=== PATIENT | female | born 1995 | race Caucasian/White ===

== ENCOUNTER 2016-12-16 19:05 | Emergency (ER) | payer OTHER ==
[2016-12-16 19:42] LABS: RAPID STREP SCREEN REAGENT QC YELLOW (YELLOW)
[2016-12-16] MEDS ORDERED: KETOROLAC 60 MG/2 ML VIAL IM STA (19:54)
[2016-12-16] MEDS ORDERED: DEXAMETHASONE 10 MG/ML VIAL PO STA (19:54)
[2016-12-16] MEDS ORDERED: KETOROLAC 60 MG/2 ML VIAL ONE (20:01)
[2016-12-16] MEDS ORDERED: CHERRY SYRUP 10 ML UDC PO ONE (20:02)
[2016-12-16] MEDS ORDERED: DEXAMETHASONE 10 MG/ML VIAL ONE (20:02)
--- NOTE | 2016-12-16 20:18 | ED Physician Documentation ---
PD HPI URI - Stated complaint Stated Complaint: SORE THROAT - Chief complaint Chief Complaint: Heent - History obtained from History obtained from: Patient - History of Present Illness Timing - onset: How many days ago (3) Timing duration: Days (3) Timing details: Gradual onset Pain level max: 7 Pain level now: 5 Associated symptoms: Nasal congestion, Rhinorrhea, Sore throat, Dry cough (mild) . No: Fever, Chills, Hemoptysis, Chest pain, Dyspnea, NVD Improves by: Rest Worsened by: Other (swallowing) Similar symptoms before: Diagnosis (viral pharyngitis) Recently seen: Clinic (seen at [facility] earlier today for same) Review of Systems Constitutional: denies: Fever GI: denies: Abdominal Pain, Nausea, Vomiting : denies: Dysuria, Frequency, Hesitancy, Now EGA Skin: denies: Rash Musculoskeletal: denies: Neck pain, Back pain Neurologic: denies: Headache PD PAST MEDICAL HISTORY - Past Medical History Past Medical History: No - Present Medications Home Medications: Ambulatory Orders Medication Instructions Recorded Confirmed Cetirizine HCl/Pseudoephedrine 1 each PO BID PRN #30 tab.er.12h 12/16/16 [Zyrtec-D Tablet] Meloxicam [Mobic] 15 mg PO DAILY PRN #20 tablet 12/16/16 predniSONE [Prednisone] 40 mg PO DAILY #6 tablet 12/16/16 - Allergies Allergies/Adverse Reactions: Allergies Allergy/AdvReac Type Severity Reaction Status Date / Time No Known Drug Allergies Allergy Verified 12/16/16 19:13 - Social History Does the pt smoke?: Yes Smoking Status: Current some day smoker PD ED PE NORMAL - Vitals Vital signs reviewed: Yes - General General: Alert and oriented X 3, No acute distress - HEENT HEENT: PERRL, Ears normal, Moist mucous membranes, Other (Posterior oropharyngeal erythema without tonsillar exudates. Uvula midline. Normal dentition.) - Neck Neck: Supple, no meningeal sign, Other (Mild shotty anterior lymphadenopathy) - Cardiac Cardiac: RRR, Strong equal pulses - Respiratory Respiratory: No respiratory distress, Clear bilaterally - Abdomen Abdomen: Soft, Non tender, Non distended - Derm Derm: Warm and dry, No rash - Neuro Neuro: Alert and oriented X 3 - Psych Psych: Normal mood, Normal affect Results - Vitals Vitals: Vital Signs - 24 hr 12/16/16 12/16/16 19:09 20:30 Temperature 37 C 36.6 C Heart Rate 95 96 Respiratory 18 20 Rate Blood Pressure 142/82 H 122/76 O2 Saturation 100 98 Oxygen O2 Source Room air - Labs Labs: Laboratory Tests 12/16/16 19:29 Group A Strep Rapid Negative PD MEDICAL DECISION MAKING - ED course Complexity details: reviewed results, re-evaluated patient, considered differential, d/w patient ED course: Patient is a 21-year-old female who presents to the emergency department with what appears to be a viral pharyngitis. Rapid strep is negative. Given Toradol and dexamethasone. Feels better. Will prescribe pain medication steroids for the next few days. We will continue supportive care and follow-up with her doctor. No evidence of peritonsillar abscess, retropharyngeal abscess. No trismus. Uvula midline. Patient counseled regarding signs and symptoms for which I believe and urgent re-evaluation would be necessary. Patient with good understanding of and agreement to plan and is comfortable going home at this time This document was made in part using voice recognition software. While efforts are made to proofread this document, sound alike and grammatical errors may occur. Departure - Departure Disposition: 01 Home, Self Care Clinical Impression: Pharyngitis Qualifiers: Pharyngitis/tonsillitis etiology: unspecified etiology Qualified Code(s): J02.9 - Acute pharyngitis, unspecified Condition: Good Instructions: ED Pharyngitis Viral Follow-Up: HARVINDER GARVIN DO [Primary Care Provider] - Within 1 week Prescriptions: Cetirizine HCl/Pseudoephedrine [Zyrtec-D Tablet] 1 each PO BID PRN #30 tab.er.12h PRN Reason: Nasal Congestion Meloxicam [Mobic] 15 mg PO DAILY PRN #20 tablet PRN Reason: pain predniSONE [Prednisone] 40 mg PO DAILY #6 tablet Comments: Return if you worsen. Drink plenty of fluids and rest. Discharge Date/Time: 12/16/16 20:37
[2016-12-16 20:31] VITALS: BP 122/76
== END 2016-12-16 20:37 | disposition home or self-care (01) ==
LOC: ED 19:05
DX: J02.9 Acute pharyngitis, unspecified (principal); F17.200 Nicotine dependence, unspecified, uncomplicated
CPT/HCPCS: 87070; 87430; 96372; 99283

== ENCOUNTER 2017-04-06 16:08 | Emergency (ER) | payer OTHER ==
--- NOTE | 2017-04-06 17:36 | ED Physician Documentation ---
History of Present Illness - Stated complaint Stated Complaint: BREAST PX/NAUSEA - Chief complaint Chief Complaint: General - History obtained from History obtained from: Patient - History of Present Illness Timing: How many weeks ago (8) - Additonal information Additional information: 21-year-old female has had a change in her hormonal control from an in plan to an oral contraceptive and she has developed some breast tenderness and nausea. She is taken tests last when she took was about 2 weeks ago. All tested been negative. She has been into see her doctor in another facility and she complained at that time of a lump in the right breast. That mass is still palpable it is not progressed. She complains of pain around the nipples and the entire breast and it is difficult sometimes for her to sleep because the pain in her breast. She has not had any discharge from the nipple and she has not had any excessive caffeine intake. She denies double vision and she has been having her period. Review of Systems Constitutional: denies: Fever, Chills, Fatigue Eyes: reports: Other (no diplopia). denies: Decreased vision Ears: denies: Ear pain Nose: denies: Congestion Throat: denies: Sore throat Cardiac: reports: Chest pain / pressure (to the breasts). denies: Palpitations Respiratory: denies: Dyspnea, Cough GI: reports: Nausea. denies: Abdominal Pain, Vomiting : denies: Dysuria, Frequency Skin: denies: Rash Musculoskeletal: denies: Neck pain, Back pain, Extremity pain PD PAST MEDICAL HISTORY - Past Medical History Past Medical History: No - Past Surgical History Past Surgical History: No - Present Medications Home Medications: Ambulatory Orders Medication Instructions Recorded Confirmed Norgestimate-Ethinyl Estradiol 1 each PO 04/06/17 [Norg-Ethin Estra 0.25-0.035 mg] - Allergies Allergies/Adverse Reactions: Allergies Allergy/AdvReac Type Severity Reaction Status Date / Time No Known Drug Allergies Allergy Verified 04/06/17 16:17 - Social History Does the pt smoke?: No Smoking Status: Never smoker Does the pt drink ETOH?: Yes Does the pt have substance abuse?: No - Immunizations Immunizations are current?: Yes PD ED PE NORMAL - Vitals Vital signs reviewed: Yes (hypertensive ) - General General: No acute distress, Well developed/nourished - HEENT HEENT: Atraumatic, PERRL, EOMI - Neck Neck: Supple, no meningeal sign - Respiratory Respiratory: No respiratory distress, Other (The right breast has a mass in the lateral superior quadrant that is mildly tender without fluctuance and this appears deep to the skin about 2cm in size. There are no masses in the left breast. There are no palpable lymph nodes in the axilla. ) - Derm Derm: Normal color, Warm and dry, No rash - Extremities Extremities: No deformity, No edema - Neuro Neuro: Alert and oriented X 3, chemical manager 2-12 intact, No motor deficit, No sensory deficit, Normal speech Eye Opening: Spontaneous Motor: Obeys Commands Verbal: Oriented GCS Score: 15 - Psych Psych: Normal mood, Normal affect Results - Vitals Vitals: Vital Signs - 24 hr 04/06/17 04/06/17 16:13 18:11 Temperature 36.8 C 36.6 C Heart Rate 85 75 Respiratory 18 15 Rate Blood Pressure 141/76 H 125/85 H O2 Saturation 99 100 Oxygen O2 Source Room air - Labs Labs: Laboratory Tests 04/06/17 17:41 HCG, Quant < 0.60 PD MEDICAL DECISION MAKING - ED course Complexity details: reviewed results, re-evaluated patient, considered differential, d/w patient ED course: 21-year-old female with breast tenderness and a question of a mass in the right breast has no specific findings today with the exception of the mass and we have drawn a prolactin level and I have asked the patient to follow-up with [facility]. Departure - Departure Disposition: 01 Home, Self Care Clinical Impression: Breast tenderness in female Condition: Stable Instructions: Self Exam Breast, ED Breast Mass Uncertain Cause Follow-Up: [facility] [Provider Group]
[2017-04-06 18:11] VITALS: BP 125/85
== END 2017-04-06 18:30 | disposition home or self-care (01) ==
LOC: ED 16:08
DX: N64.4 Mastodynia (principal)
CPT/HCPCS: 36415; 84146; 84702; 99283

== ENCOUNTER 2017-10-13 09:16 | Emergency (ER) | payer OTHER ==
[2017-10-13 09:32] VITALS: BP 125/72
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
== END 2017-10-13 10:30 | disposition home or self-care (01) ==
LOC: ED 09:16
DX: J02.9 Acute pharyngitis, unspecified (principal)
CPT/HCPCS: 87070; 87430; 99282; 99283

== ENCOUNTER 2018-06-10 12:34 | Outpatient (CLI) | payer OTHER | END 2018-06-10 12:35 | disposition critical access hospital (66) | LOC: EMS 12:34 | PROVIDERS: ATTEND Surgery | DX: R07.9 Chest pain, unspecified (principal) | CPT/HCPCS: A0425; A0427 ==

== ENCOUNTER 2018-06-10 12:54 | Emergency (ER) | payer OTHER ==
[2018-06-10] MEDS ORDERED: LORazepam 2 MG/ML VIAL IVP STA (13:21)
--- NOTE | 2018-06-10 13:24 | ED Physician Documentation ---
PD HPI CHEST PAIN - Stated complaint Stated Complaint: CP - Chief complaint Chief Complaint: Cardiac - History obtained from History obtained from: Patient, Family, EMS - History of Present Illness Timing - onset: Today (This is a 23-year-old woman with history of untreated anxiety. She was having a bad morning with regard to her anxiety and and started to develop left-sided sharp chest pain associated with shortness of breath and dizziness. 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 She is on control. She denies leg pain or swelling. Pain is better now after some time and nitroglycerin although she still feels dizzy after the nitroglycerin. She still quite anxious.) Review of Systems Constitutional: denies: Fever, Chills Nose: denies: Rhinorrhea / runny nose, Congestion Throat: denies: Sore throat Cardiac: reports: Chest pain / pressure, Palpitations (chronic). denies: Pedal edema, Calf pain Respiratory: reports: Dyspnea GI: denies: Nausea PD PAST MEDICAL HISTORY - Past Medical History Cardiovascular: Murmur - Past Surgical History Past Surgical History: No - Present Medications Home Medications: Ambulatory Orders Medication Instructions Recorded Confirmed Norgestimate-Ethinyl Estradiol 1 each PO 04/06/17 [Norg-Ethin Estra 0.25-0.035 mg] LORazepam [Ativan] 0.5 mg PO Q6H PRN #10 tablet 06/10/18 - Allergies Allergies/Adverse Reactions: Allergies Allergy/AdvReac Type Severity Reaction Status Date / Time No Known Drug Allergies Allergy Verified 06/10/18 12:58 - Social History Does the pt smoke?: No Smoking Status: Never smoker Does the pt drink ETOH?: Yes Does the pt have substance abuse?: No - Immunizations Immunizations are current?: Yes - POLST Patient has POLST: No PD ED PE NORMAL - Vitals Vital signs reviewed: Yes - General General: Alert and oriented X 3, Other (Tearful and anxious) - HEENT HEENT: PERRL, EOMI - Neck Neck: Supple, no meningeal sign, No bony TTP - Cardiac Cardiac: RRR, No murmur (I do not appreciate any current murmur.) - Respiratory Respiratory: No respiratory distress, Clear bilaterally - Abdomen Abdomen: Non tender - Extremities Extremities: No edema, No calf tenderness / cord - Neuro Neuro: Alert and oriented X 3, Normal speech Results - Vitals Vitals: Vital Signs - 24 hr 06/10/18 12:55 Temperature 37.1 C Heart Rate 92 Respiratory 18 Rate Blood Pressure 107/78 O2 Saturation 100 Oxygen O2 Source Room air - EKG (time done) 1259 Rate: Rate (enter#) (87) Rhythm: NSR [place]: Normal Intervals: Normal [place] QRS: Normal Ischemia: Normal ST segments - Labs Labs: Laboratory Tests 06/10/18 06/10/18 13:44 13:44 D-Dimer < 200.0 L Troponin I < 0.04 PD MEDICAL DECISION MAKING - ED course ED course: 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 We screen for heart disease and did a d-dimer given recent travel and control use, both of which were negative. She was feeling much better after half a milligram of Ativan IV here. Departure - Departure Disposition: Home, Self Care Clinical Impression: Anxiety Chest pain Qualifiers: Chest pain type: other chest pain Qualified Code(s): R07.89 - Other chest pain; R07.8 - Other chest pain Condition: Good Record reviewed to determine appropriate education?: Yes Instructions: ED Chest Pain NonCardiac, ED Panic Attack Prescriptions: LORazepam [Ativan] 0.5 mg PO Q6H PRN #10 tablet PRN Reason: Anxiety Comments: [place]-term treatments for anxiety. Today we tested you for blood clots and heart disease, both which were negative. Return for new or worsening symptoms. You are also treated with a small dose of IV Ativan here with relief of your symptoms. We gave you a prescription for this for when it is really bad but again this is not something you want to take long-term. I suspect your physician will start you on an antidepressant, not for depression but for anxiety prevention.
[2018-06-10 14:33] VITALS: BP 114/74
== END 2018-06-10 14:32 | disposition home or self-care (01) ==
LOC: EDUNIT# → ED 12:54
DX: F41.9 Anxiety disorder, unspecified (principal); R07.89 Other chest pain
CPT/HCPCS: 36415; 84484; 85379; 93005; 96374; 99283; J2060

== ENCOUNTER 2018-06-30 00:19 | Emergency (ER) | payer OTHER ==
[2018-06-30] MEDS ORDERED: LORazepam 1 MG TABLET PO STA (01:03)
--- NOTE | 2018-06-30 01:28 | ED Physician Documentation ---
PD HPI MHE - Stated complaint Stated Complaint: ANXIETY - Chief complaint Chief Complaint: MHE - History obtained from History obtained from: Patient - History of Present Illness Primary symptom: Anxiety Timing - onset: How many months ago (1) Severity Comments: severe Contributing factors: Other (states she does not know). No: Family, Sig other, Work, School, Substance abuse - ETOH, Substance abuse - drugs Similar symptoms before: Diagnosis (anxiety) Recently seen: Clinic, Other (Reports they gave her trazodone but it has worsened her symptoms.) - Additional information Additional information: Reports she cannot sleep. Feels anxious, having diarrhea, GI upset, restlessness. Reports family hx of hyperthyroidsim. Review of Systems Ten Systems: 10 systems reviewed and negative Constitutional: denies: Fever, Chills Cardiac: denies: Chest pain / pressure, Palpitations Respiratory: denies: Dyspnea GI: reports: Nausea, Diarrhea, Other (anorexia). denies: Abdominal Pain, Vomiting Skin: denies: Rash Neurologic: reports: Headache Psychiatric: reports: Anxiety, Insomnia. denies: Depressed, Suicidal, Homicidal, Hallucinations, Delusions PD PAST MEDICAL HISTORY - Past Medical History Past Medical History: Yes Cardiovascular: Murmur Psych: Anxiety, Panic attacks - Past Surgical History Past Surgical History: No - Present Medications Home Medications: Ambulatory Orders Medication Instructions Recorded Confirmed Norgestimate-Ethinyl Estradiol 1 each PO 04/06/17 [Norg-Ethin Estra 0.25-0.035 mg] Trazodone HCl 50 mg PO QPM 06/30/18 06/30/18 - Allergies Allergies/Adverse Reactions: Allergies Allergy/AdvReac Type Severity Reaction Status Date / Time No Known Drug Allergies Allergy Verified 06/30/18 00:29 - Social History Does the pt smoke?: No Smoking Status: Never smoker Does the pt drink ETOH?: Yes Does the pt have substance abuse?: No - Immunizations Immunizations are current?: Yes - POLST Patient has POLST: No PD ED PE EXPANDED - General General: Alert, No acute distress, Well developed/nourished, Anxious. No: In Pain, Lethargic - HEENT HEENT: Atraumatic, Head injury, PERRL - Eyes Eyes: PERRL - Neck Neck: Supple w/out meningeal sx - Cardiac Cardiac: Tachy, Regular Rhythm - Respiratory Respiratory: No: Distress, Labored, Accessory mm use - Abdomen Abdomen: Other (soft). No: Distended - Extremities Extremities: Normal. No: Deformity, Tenderness - Neuro Neuro: Alert and Oriented X 3, Normal motor, Normal Sensation. No: Confused, Disoriented, Lethargic, Aphasia, Dysarthria - GCS Eye Opening: Spontaneous Motor: Obeys Commands Verbal: Oriented Total: 15 - Psych Psych: Poor eye contact, Anxious, Agitated. No: Intoxicated / AOB, Depressed, Suicidal, Homicidal, Tearful, Withdrawn, Flight of ideas, Auditory hallucinations, Visual hallucinations, Tactile hallucinations Results - Vitals Vitals: Vital Signs - 24 hr 06/30/18 00:20 Temperature 36.0 C L Heart Rate 102 H Respiratory 18 Rate Blood Pressure 142/89 H O2 Saturation 97 Oxygen O2 Source Room air - Labs Labs: Laboratory Tests 06/30/18 01:10 TSH 1.34 PD MEDICAL DECISION MAKING - ED course ED course: 23 y/o F with hx of anxiety, panic attacks. Feeling insomnia, diarrhea, anxiety, restlessness. Refused ativan here. Taking trazodone without relief. Will check TSH and reevaluate pt Negative tsH Pt again refused further medication. Will call for Mental health referral through [facility] in the morning. Departure - Departure Disposition: 01 Home, Self Care Clinical Impression: Anxiety disorder Qualifiers: Anxiety disorder type: generalized anxiety disorder Qualified Code(s): F41.1 - Generalized anxiety disorder Condition: Fair Record reviewed to determine appropriate education?: Yes Instructions: ED Panic Attack Follow-Up: HARVINDER GARVIN DO [Primary Care Provider] - Comments: Your TSh here was negative. You can call [facility] in the morning for a Mental health referral. Return to the ED if you are feeling suicidal or having thoughts of harming yourself.
[2018-06-30 02:09] VITALS: BP 130/86
== END 2018-06-30 02:09 | disposition home or self-care (01) ==
LOC: ED 00:19
DX: F41.1 Generalized anxiety disorder (principal)
CPT/HCPCS: 36415; 84443; 99282; 99283; J8499

== ENCOUNTER 2018-09-02 17:04 | Outpatient (CLI) | payer OTHER ==
--- NOTE | 2018-09-05 09:03 | Ultrasound Report ---
Reason: OTHER DISEASES OF PHARYNX,OTHER DYSPHAGIA Procedure Date: 09/02/2018 Accession Number: [id number] / [id number] Procedure: US - Head or Neck Soft Tissue CPT Code: FULL RESULT: EXAM: THYROID ULTRASOUND EXAM DATE: 09/02/2018 05:55 PM. CLINICAL HISTORY: Other diseases of pharynx, other dysphagia. COMPARISON: None. TECHNIQUE: Real time sonographic imaging of the thyroid was performed by the oil pit attendant. Multiple passenger representative static images were saved for review. FINDINGS: THYROID GLAND: Right Lobe: 5.1 x 1.4 x 1.8 cm, volume 6.4 cc. Normal background echotexture. Right Lobe Nodules: No dominant nodule is identified. Left Lobe: 5.7 x 1.2 x 1.8 cm, volume 6 cc. Normal background echotexture. Left Lobe Nodules: The largest cyst measures up to 0.3 cm with no dominant nodule identified. Isthmus: 0.24 cm AP. Isthmic Nodules: None. LYMPH NODES: No lymphadenopathy demonstrated in the central or lateral compartment by size criteria. OTHER: None. IMPRESSION: No suspicious thyroid nodules are identified. Management recommendations are based on 2015 [employer] Management Guidelines for Adult Patients with Thyroid Nodules and Differentiated Thyroid Cancer. RADIA
== END 2018-09-02 17:05 | disposition home or self-care (01) ==
LOC: DI 17:04
PROVIDERS: ATTEND Otolaryngology
DX: R13.19 Other dysphagia (principal); J39.2 Other diseases of pharynx
CPT/HCPCS: 76536

== ENCOUNTER 2018-09-08 18:13 | Emergency (ER) | payer OTHER ==
--- NOTE | 2018-09-08 18:46 | ED Physician Documentation ---
History of Present Illness - Stated complaint Stated Complaint: HEART FLUTTER/NAUSEA/SOA - Chief complaint Chief Complaint: Cardiac - History obtained from History obtained from: Patient - Additonal information Additional information: Patient is a 23-year-old female with history of anxiety and depression currently not taking any medications presenting with recurrence of palpitations, chest pressure, shortness of breath while playing softball earlier tonight. Patient reports this happens regularly and has been seen in the ED, as well as by primary care for this issue. Patient is also seen psychiatrist, but not placed on any medications. Patient denies use of caffeine, alcohol, illicit substances, tobacco. Patient denies pleuritic chest pain, productive cough, fever, leg swelling or pain, abdominal pain. Occasionally, symptoms are associated with nausea and vomiting. Patient denies . No other improving or worsening factors noted. Review of Systems Constitutional: denies: Fever Cardiac: reports: Chest pain / pressure, Palpitations Respiratory: reports: Dyspnea. denies: Cough GI: reports: Nausea, Vomiting. denies: Abdominal Pain, Diarrhea : denies: Dysuria PD PAST MEDICAL HISTORY - Past Medical History Cardiovascular: Murmur Psych: Anxiety, Panic attacks - Past Surgical History Past Surgical History: No - Present Medications Home Medications: Ambulatory Orders Medication Instructions Recorded Confirmed Norgestimate-Ethinyl Estradiol 1 each PO 04/06/17 [Norg-Ethin Estra 0.25-0.035 mg] RX: Trazodone HCl 50 mg PO QPM 06/30/18 06/30/18 - Allergies Allergies/Adverse Reactions: Allergies Allergy/AdvReac Type Severity Reaction Status Date / Time No Known Drug Allergies Allergy Verified 09/08/18 18:23 - Social History Does the pt smoke?: No Smoking Status: Never smoker Does the pt drink ETOH?: Yes Does the pt have substance abuse?: No - Immunizations Immunizations are current?: Yes - POLST Patient has POLST: No PD ED PE NORMAL - Vitals Vital signs reviewed: Yes - General General: Alert and oriented X 3, No acute distress, Well developed/nourished - HEENT HEENT: Atraumatic, Moist mucous membranes - Neck Neck: Supple, no meningeal sign - Cardiac Cardiac: RRR, No murmur - Respiratory Respiratory: No respiratory distress, Clear bilaterally - Abdomen Abdomen: Normal bowel sounds, Soft, Non tender, Non distended - Derm Derm: Normal color, Warm and dry, No rash - Extremities Extremities: No deformity, No tenderness to palpate - Neuro Neuro: Alert and oriented X 3, No motor deficit, No sensory deficit - Psych Psych: Normal mood, Normal affect Results - Vitals Vitals: Vital Signs - 24 hr 09/08/18 09/08/18 18:19 20:17 Temperature 37 C 37.0 C Heart Rate 125 H 95 Respiratory 26 H 16 Rate Blood Pressure 121/72 126/68 O2 Saturation 100 100 Oxygen O2 Source Room air - EKG (time done) 1819 Rate: Rate (enter#) (105) - Labs Labs: Laboratory Tests 09/08/18 09/08/18 09/08/18 19:10 19:10 19:10 WBC 9.3 RBC 4.14 L Hgb 12.7 Hct 39.0 MCV 94.2 MCH 30.7 MCHC 32.6 RDW 13.2 Plt Count 269 MPV 10.3 Neut # (Auto) 6.3 Lymph # (Auto) 2.3 Crowley # (Auto) 0.6 Eos # (Auto) 0.1 Baso # (Auto) 0.0 Absolute Nucleated RBC 0.00 Nucleated RBC % 0.0 Sodium 141 Potassium 3.6 Chloride 102 Carbon Dioxide 26 Anion Gap 13.0 BUN 13 Creatinine 0.8 Estimated GFR (MDRD) 88 L Glucose 86 Calcium 10.0 Total Bilirubin 0.7 AST 16 ALT 12 Alkaline Phosphatase 48 Troponin I < 0.04 Troponin I High Sens < 2.3 L Total Protein 8.1 Albumin 4.9 Globulin 3.2 Albumin/Globulin Ratio 1.5 Lipase 34 TSH Serum HCG, Qual 09/08/18 09/08/18 19:10 19:10 WBC RBC Hgb Hct MCV MCH MCHC RDW Plt Count MPV Neut # (Auto) Lymph # (Auto) Crowley # (Auto) Eos # (Auto) Baso # (Auto) Absolute Nucleated RBC Nucleated RBC % Sodium Potassium Chloride Carbon Dioxide Anion Gap BUN Creatinine Estimated GFR (MDRD) Glucose Calcium Total Bilirubin AST ALT Alkaline Phosphatase Troponin I Troponin I High Sens Total Protein Albumin Globulin Albumin/Globulin Ratio Lipase TSH 1.86 Serum HCG, Qual NEGATIVE PD MEDICAL DECISION MAKING - ED course Complexity details: reviewed old records, reviewed results, re-evaluated patient, considered differential, d/w patient ED course: Patient has been seen for these issues multiple times in the ED and do feel that anxiety could be a large contributor. It was also recommended that patient follow-up with cardiology and obtain Holter monitoring and still do feel this is an appropriate next step. At this time, have low suspicion for PE, ACS, PA, unstable angina, dissection, aneurysm but considered. EKG did not reflect ischemia and cardiac markers within normal limits. Thyroid testing within n ormal limits. testing negative. Remainder of screening lab work did not reflect significant anemia, electrode disturbance, acute kidney injury, infection or other complication. Chest x-ray did not find evidence of pulmonary edema, pneumonia, or other acute pathology. At this time, do not feel patient requires further invasive testing or imaging, but recommended supportive cares, return precautions, and primary care, as well as cardiology and psychiatry follow-up. Patient voiced understanding and is comfortable with discharge plan. Departure - Departure Disposition: 01 Home, Self Care Clinical Impression: Palpitations Condition: Good Instructions: ED Palpitations Follow-Up: HARVINDER GARVIN DO [Primary Care Provider] - Within 3 Days Comments: Recommend follow-up with your primary care physician in next 2 to 3 days, as well as referral and follow-up with cardiology including possible Holter monitoring, as well as psychiatry for further addressing your anxiety. Please return to ED sooner if expands worsening symptoms or have other concerns. Discharge Date/Time: 09/08/18 20:18
[2018-09-08] MEDS ORDERED: SODIUM CHLORIDE 0.9% 1,000 ML IV ONE (18:53)
[2018-09-08 19:19] LABS: BASOPHILS % (AUTO) 0.4 %; EOSINOPHILS # (AUTO) 0.1 10^3/uL (0.0-0.7); EOSINOPHILS % (AUTO) 1.1 %; HGB - HEMOGLOBIN 12.7 g/dL (12.0-16.0); LYMPHOCYTES # (AUTO) 2.3 10^3/uL (1.5-3.5); LYMPHOCYTES % (AUTO) 24.2 %; MEAN CORPUSCULAR HEMOGLOBIN 30.7 pg (27.0-31.0); MEAN CORPUSCULAR HGB CONC 32.6 g/dL (32.0-36.0); MEAN CORPUSCULAR VOLUME 94.2 fL (81.0-99.0); MEAN PLATELET VOLUME 10.3 fL (7.9-10.8); MONOCYTES # (AUTO) 0.6 10^3/uL (0.0-1.0); MONOCYTES % (AUTO) 6.6 %; NEUTROPHILS # (AUTO) 6.3 10^3/uL (1.5-6.6); NEUTROPHILS % (AUTO) 67.5 %; PLT - PLATELET COUNT 269 10^3/uL (130-450); RED BLOOD COUNT 4.14 10^6/uL (4.20-5.40); RED CELL DISTRIBUTION WIDTH 13.2 % (12.0-15.0); WHITE BLOOD COUNT 9.3 x10^3/uL (4.8-10.8)
[2018-09-08 19:38] LABS: ALBUMIN 4.9 g/dL (3.2-5.5); ALBUMIN/GLOBULIN RATIO 1.5 (1.0-2.2); BILIRUBIN,TOTAL 0.7 mg/dL (0.2-1.0); CREATININE 0.8 mg/dL (0.4-1.0); TOTAL PROTEIN 8.1 g/dL (6.7-8.2)
[2018-09-08 19:41] LABS: TROPONIN I < 0.04 ng/mL (<0.49)
[2018-09-08 19:44] LABS: HCG,QUALITATIVE BLOOD NEGATIVE
--- NOTE | 2018-09-08 19:48 | XRAY Report ---
Reason: cough Procedure Date: 09/08/2018 Accession Number: [id number] / [id number] Procedure: XR - Chest 2 View X-Ray CPT Code: 27268 FULL RESULT: EXAM: CHEST RADIOGRAPHY. EXAM DATE: 09/08/2018 07:31 PM. CLINICAL HISTORY: Shortness of breath for 2 weeks, increasing today. New heart palpitations today. Cough. COMPARISON: None. TECHNIQUE: 2 views. FINDINGS: Lungs/Pleura: No focal opacities evident. No pleural effusion. No pneumothorax. Normal volumes. Mediastinum: Heart and mediastinal contours are unremarkable. Other: Scoliosis. IMPRESSION: Normal 2-view chest radiography. RAD[facility]
[2018-09-08 20:18] VITALS: BP 126/68
== END 2018-09-08 20:18 | disposition home or self-care (01) ==
LOC: ED 18:13
DX: R00.2 Palpitations (principal); F41.9 Anxiety disorder, unspecified
CPT/HCPCS: 36415; 71046; 80053; 83690; 84443; 84484; 84703; 85025; 99284

== ENCOUNTER 2019-03-21 06:35 | Emergency (ER) | payer OTHER ==
[2019-03-21 06:43] VITALS: BP 119/76
[2019-03-21 07:16] LABS: RAPID STREP SCREEN Negative (Negative)
--- NOTE | 2019-03-21 07:29 | ED Physician Documentation ---
History of Present Illness - Stated complaint Stated Complaint: FEVER,,COUGH,SORE THROAT - Chief complaint Chief Complaint: General - History obtained from History obtained from: Patient (23-year-old 1 para 0, 7 weeks who had been seen by OB, presented to the emergency room with 48 hours of URI symptoms with cough congestion and productive sputum. There has been fever and treated at home with Tylenol. Last Tylenol was taken at 10:00 last night. She feel her symptom has not improved over the last 2 days subsequently came to the emergency room for management. There has been nausea. Without vomiting. No complaint of chest pain no shortness of breath. No abdominal pain. No hematuria no dysuria.) - History of Present Illness Timing: How many days ago (2) Review of Systems Ten Systems: 10 systems reviewed and negative Constitutional: reports: Fever Eyes: reports: Reviewed and negative Ears: reports: Reviewed and negative Nose: reports: Congestion, Sinus pressure / pain Throat: reports: Swollen tonsils Cardiac: reports: Reviewed and negative Respiratory: reports: Cough. 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 : None HEENT: Other (Mild pharyngeal erythema, no exudate) Psych: Anxiety, Panic attacks Musculoskeletal: None Derm: None - Past Surgical History Past Surgical History: No - Present Medications Home Medications: Ambulatory Orders Medication Instructions Recorded Confirmed Norgestimate-Ethinyl Estradiol 1 each PO 04/06/17 [Norg-Ethin Estra 0.25-0.035 mg] Trazodone HCl 50 mg PO QPM 06/30/18 06/30/18 - Allergies Allergies/Adverse Reactions: Allergies Allergy/AdvReac Type Severity Reaction Status Date / Time No Known Drug Allergies Allergy Verified 03/21/19 06:56 - Social History Does the pt smoke?: No Smoking Status: Never smoker Does the pt drink ETOH?: Yes Does the pt have substance abuse?: No - Immunizations Immunizations are current?: Yes - POLST Patient has POLST: No PD ED PE NORMAL - Vitals Vital signs reviewed: Yes - General General: Alert and oriented X 3, No acute distress, Well developed/nourished - HEENT HEENT: Atraumatic, PERRL, EOMI, Ears normal, Moist mucous membranes, Other - Neck Neck: Supple, no meningeal sign, No bony TTP, No adenopathy - Cardiac Cardiac: RRR, No murmur, No gallop - Respiratory Respiratory: No respiratory distress, Clear bilaterally - Abdomen Abdomen: Normal bowel sounds, Soft, Non tender, Non distended - Back Back: No CVA TTP - Derm Derm: Warm and dry - Extremities Extremities: No deformity - Neuro Neuro: Alert and oriented X 3 - Psych Psych: Normal mood, Normal affect Results - Vitals Vitals: Vital Signs - 24 hr 03/21/19 06:40 Temperature 38.2 C H Heart Rate 116 H Respiratory 20 Rate Blood Pressure 119/76 O2 Saturation 100 Oxygen O2 Source Room air - Labs Labs: Laboratory Tests 03/21/19 03/21/19 06:58 06:58 Influenza A (Rapid) Negative Influenza B (Rapid) Negative Group A Strep Rapid Negative PD MEDICAL DECISION MAKING - ED course Complexity details: d/w patient, d/w family ED course: At 725, patient was disclosed negative influenza test, negative strep test. She is given impression of common viral infection. Symptomatic relief with Tylenol or ibuprofen for fever is recommended, Aaron salt water for comfort up the pharynx, follow-up with primary care doctor in the next 5 to 7 days. Drink plenty of fluid as fever will cause you to perspire more. Departure - Departure Disposition: 01 Home, Self Care Clinical Impression: Viral URI with cough Pharyngitis Qualifiers: Pharyngitis/tonsillitis etiology: unspecified etiology Qualified Code(s): J02.9 - Acute pharyngitis, unspecified Condition: Stable Instructions: ED Pharyngitis Viral, ED Viral Syndrome Comments: Please take Tylenol 650 mg every 4-6 hours as needed for fever and discomfort. Follow-up with your primary care doctor for further management, general viral precaution with frequent handwashing and mask if possible. Discharge Date/Time: 03/21/19 07:33
== END 2019-03-21 07:33 | disposition home or self-care (01) ==
LOC: ED 06:35
DX: O98.511 Other viral diseases complicating pregnancy, first trimester (principal); O99.89 Other specified diseases and conditions complicating pregnancy, childbirth and the puerperium; J02.9 Acute pharyngitis, unspecified; Z3A.01 Less than 8 weeks gestation of pregnancy
CPT/HCPCS: 87070; 87275; 87276; 87430; 99283; 99284

== ENCOUNTER 2019-10-06 08:52 | Outpatient (CLI) | payer OTHER | END 2019-10-06 08:53 | disposition home or self-care (01) | LOC: DI 08:52 | PROVIDERS: ATTEND Family Medicine | DX: R06.09 Other forms of dyspnea (principal) | CPT/HCPCS: 93306 ==

== ENCOUNTER 2022-11-23 08:00 | Outpatient (CLI) | payer OTHER ==
[2022-11-23 20:03] LABS: BACTERIAL VAGINOSIS DNA POSITIVE (NEGATIVE); CANDIDA GLABRATA DNA NEGATIVE (NEGATIVE); CANDIDA GROUP DNA NEGATIVE (NEGATIVE); CANDIDA KRUSEI DNA NEGATIVE (NEGATIVE); TRICHOMONAS VAGINALIS DNA NEGATIVE (NEGATIVE)
[2022-11-23 21:30] LABS: CHLAMYDIA TRACHOMATIS DNA NEGATIVE (NEGATIVE); NEISSERIA GONORRHOEAE DNA NEGATIVE (NEGATIVE)
== END 2022-11-23 23:59 | disposition home or self-care (01) ==
LOC: LAB.WC 08:00
PROVIDERS: ATTEND Nurse Practitioner
DX: N89.8 Other specified noninflammatory disorders of vagina (principal); Z11.3 Encounter for screening for infections with a predominantly sexual mode of transmission
CPT/HCPCS: 81514; 81599; 87491; 87591; 87661

== ENCOUNTER 2022-11-23 11:35 | Outpatient (CLI) | payer OTHER ==
[2022-11-23 11:52] LABS: HCT - HEMATOCRIT 37.8 % (37.0-47.0); HGB - HEMOGLOBIN 12.4 g/dL (12.0-16.0); MEAN CORPUSCULAR HEMOGLOBIN 30.8 pg (27.0-31.0); MEAN CORPUSCULAR HGB CONC 32.8 g/dL (32.0-36.0); MEAN CORPUSCULAR VOLUME 93.8 fL (81.0-99.0); MEAN PLATELET VOLUME 9.9 fL (7.9-10.8); RED BLOOD COUNT 4.03 10^6/uL (4.20-5.40); RED CELL DISTRIBUTION WIDTH 13.2 % (12.0-15.0)
[2022-11-23 12:19] LABS: THYROID STIMULATING HORMONE 1.59 uIU/mL (0.34-5.60)
[2022-11-23 12:24] LABS: FERRITIN 11.5 ng/mL (11.0-306.8)
[2022-11-23 12:44] LABS: ESTIMATED AVERAGE GLUCOSE 94 mg/dL (70-100); HEMOGLOBIN A1c% 4.9 % (4.27-6.07)
[2022-11-25 18:07] LABS: ANTINUCLEAR ANTIBODIES IFA Negative (.)
== END 2022-11-23 11:36 | disposition home or self-care (01) ==
LOC: LAB 11:35
PROVIDERS: ATTEND Nurse Practitioner
DX: R53.82 Chronic fatigue, unspecified (principal); N89.8 Other specified noninflammatory disorders of vagina; Z11.3 Encounter for screening for infections with a predominantly sexual mode of transmission
CPT/HCPCS: 36415; 81514; 81599; 82728; 83036; 84443; 85027; 86038; 87109; 87491; 87591; 87661; 87801

== ENCOUNTER 2022-12-30 13:43 | Outpatient (CLI) | payer OTHER ==
--- NOTE | 2022-12-30 16:32 | Ultrasound Report ---
PROCEDURE: Pelvic w/Transvaginal INDICATIONS: ABDOMINAL BLOATING TECHNIQUE: Real-time scanning was performed of the pelvic organs, with image documentation. Additional endovagi nal scanning was necessary due to incomplete visualization of the adnexal and endometrial structures by transabdominal scanning. COMPARISON: None. FINDINGS: Uterus: Uterus is anteverted and normal in size at 8.8 x 2.2 x 4.8 cm. The myometrium is homogeneou s. The endometrium measures 7.7 mm in combined thickness. No fibroids Ovaries: The right ovary measures 3.6 x 2.1 x 2.4 cm, with a calculated ovarian volume of 9.5 cc. T he left ovary measures 2.7 x 1.8 x 2.0 cm, with a calculated ovarian volume of 5.1 cc. The ovaries h ave a normal sonographic appearance. Less than 12 follicles can be seen in each ovary. No adnexal m asses are seen. No cystic lesions measuring greater than 3 cm. Other: No pathologic free abdominal or pelvic fluid. IMPRESSION: Unremarkable pelvic ultrasound. Reviewed by: Eric Vazquez MD on 12/30/2022 4:30 PM PST Approved by: Eric Vazquez MD on 12/30/2022 4:30 PM PST Station ID: [id number]
== END 2022-12-30 13:44 | disposition home or self-care (01) ==
LOC: DI 13:43
PROVIDERS: ATTEND Nurse Practitioner
DX: R14.0 Abdominal distension (gaseous) (principal)

== ENCOUNTER 2023-06-02 13:26 | Emergency (ER) | payer OTHER ==
[2023-06-02 13:39] VITALS: BP 150/80; O2SAT 100
--- NOTE | 2023-06-02 14:16 | ED Physician Documentation ---
PD HPI LOWER EXT INJURY - Stated complaint Stated Complaint: RT LEG LAC - Chief complaint Chief Complaint: Laceration - History obtained from History obtained from: Patient - History of Present Illness PD HPI LOW EXT INJURY LOCATION: Right, Thigh Type of injury: Puncture wound Where injury occurred: Home - Additional information Additional information: 28-year-old female presented after a puncture wound to the right side. She was using a clean knife and accidentally slipped and punctured herself in the right side. She cleaned it at home and applied butterfly bandages but felt like it may need stitches so came into the ER. She states her last Tdap is about 7 years ago. 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 HEENT: Other Psych: Anxiety, Panic attacks Musculoskeletal: None Derm: None - Past Surgical History Past Surgical History: No - Present Medications Home Medications: Ambulatory Orders Medication Instructions Recorded Confirmed Norgestimate-Ethinyl Estradiol 1 each PO 04/06/17 [Norg-Ethin Estra 0.25-0.035 mg] Trazodone HCl 50 mg PO QPM 06/30/18 06/30/18 - Allergies Allergies/Adverse Reactions: Allergies Allergy/AdvReac Type Severity Reaction Status Date / Time No Known Drug Allergies Allergy Verified 06/02/23 13:29 - Social History Does the pt smoke?: No Smoking Status: Never smoker Does the pt drink ETOH?: Yes Does the pt have substance abuse?: No - Immunizations Immunizations are current?: No Immunizations: TDAP >10years/unknown - POLST Patient has POLST: No PD ED PE NORMAL - Vitals Vital signs reviewed: Yes - General General: Alert and oriented X 3, No acute distress, Well developed/nourished - Derm Derm: Normal color, Warm and dry, Other (2 cm puncture laceration lateral right thigh. Not actively bleeding.) - Extremities Extremities: No deformity, Normal ROM s pain Results - Vitals Vitals: Vital Signs - 24 hr 06/02/23 13:29 Temperature 36.8 C Heart Rate 98 Respiratory 16 Rate Blood Pressure 150/80 H O2 Saturation 100 Oxygen O2 Source Room air Procedures - Laceration (location) Lower extremity right Lateral Length in cm: 2 Wound type: Linear Neurovascular status: Sensory intact, Motor intact, Vascular intact Tendon involvement: Tendon intact Anesthesia: Lidocaine 1% Wound preparation: Irrigated copiously NS Skin layer closure: Nylon, Size #-0 - enter number (4), Sutures - enter # (4) Other: Patient tolerated well, No complications, Dressing applied, Tetanus booster given PD Medical Decision Making - ED course Complexity details: d/w patient ED course: 28-year-old female presented with a 2 cm laceration to the right lateral thigh after accidentally puncturing it with a clean knife. After evaluating the patient and discussing options, I do think suturing is best as area is a little bit too much tension on it for Steri-Strips. Patient agreeable. She was anesthetized locally with 1% lidocaine and the wound was cleaned thoroughly with normal saline. It was closed with 4 #4 point 0 nylon sutures. The patient was advised that these will need to be removed in 10 to 14 days and she can return here or go to walk-in clinic for this. She should keep wound clean and dry but do not soak. She was given updated Tdap today. I dressing was applied and patient was discharged home. Departure - Departure Disposition: 01 Home, Self Care Clinical Impression: Laceration of right thigh Qualifiers: Encounter type: initial encounter Qualified Code(s): S71.111A - Laceration without foreign body, right thigh, initial encounter Condition: Good Instructions: ED Laceration All Comments: We put 4 stitches in your right leg laceration. These can be removed in 10 to 14 days. If there are any signs of infection including redness, swelling, pur ulent drainage, increased pain or new concerns, please return to the ER.We did give an updated tetanus shot today which is called a Tdap for tetanus, diphtheria and pertussis. This is good for 10 years. Forms: PCP List
[2023-06-02] MEDS: TETANUS/DIPHTHERIA/PERTUSSIS 0.5 ML SYRINGE IM ONE (14:20)
== END 2023-06-02 14:38 | disposition home or self-care (01) ==
LOC: ED 13:26
DX: S71.111A Laceration without foreign body, right thigh, initial encounter (principal); W26.0XXA Contact with knife, initial encounter; Z23 Encounter for immunization; F41.9 Anxiety disorder, unspecified; Z79.899 Other long term (current) drug therapy
CPT/HCPCS: 12001; 90471; 99283

== ENCOUNTER 2023-06-18 10:37 | Day surgery (SDC) | payer OTHER ==
[2023-06-18 10:55] LABS: HCG UR QUAL NEGATIVE
[2023-06-18] MEDS: LACTATED RINGERS 1,000 ML IV ONE (11:17)
--- NOTE | 2023-06-18 11:34 | ANESTHESIA ---
Pre-Anesthesia VS, & Labs - Diagnosis family hx of colon CA - Procedure colonoscopy Vital Signs: Temp Pulse Resp BP Pulse Ox O2 Flow Rate 36.8 C 104 H 18 138/81 H 99 06/18/23 10:20 06/18/23 10:20 06/18/23 10:20 06/18/23 10:20 06/18/23 10:20 Height: 5 ft 3 in Weight (kg): 89.4 kg Body Mass Index: 34.9 BMI Classification: Obese - NPO >8 hours - Is Patient ?: No Home Medications and Allergies Home Medications: Ambulatory Orders Semaglutide [Ozempic] 0.25 mg SQ OAW 06/17/23 Norgestimate-Ethinyl Estradiol [Norg-Ethin Estra 0.25-0.035 mg] 1 each PO 04/06/17 Trazodone HCl 50 mg PO QPM 06/30/18 Semaglutide [Ozempic] 0.25 mg SQ OAW 06/17/23 Allergies/Adverse Reactions: Allergies Allergy/AdvReac Type Severity Reaction Status Date / Time No Known Drug Allergies Allergy Verified 06/02/23 13:29 Anes History & Medical History - Anesthetic History Anesthesia Complications: reports: No previous complications Family history of Anesthesia Complications: Denies Family history of Malignant Hyperthermia: Denies - Medical History Cardiovascular: reports: None Pulmonary: reports: None Gastrointestinal: reports: Chronic diarrhea, Hemorrhoids, Other Urinary: reports: None Neuro: reports: None Musculoskeletal: reports: None Endocrine/Autoimmune: reports: None Blood Disorders: reports: None Skin: reports: None Smoking Status: Never smoker Exam General: Alert, Oriented x3, Cooperative Dental: WNL Mouth Openin Fingerbreadth Neck Mobility: Normal Mallampati classification: II Thyromental Distance: 4-6 cm Respiratory: Lungs clear Cardiovascular: Regular rate Plan Anesthesia Type: General, Total IV Consent for Procedure(s) Verified and Reviewed: Yes Code Status: Attempt Resuscitation ASA classification: 2-Mild systemic disease Is this case an emergency?: No
[2023-06-18] MEDS ORDERED: LIDOCAINE-MPF 2% 5 ML VIAL ONE (11:46)
[2023-06-18] MEDS ORDERED: MIDAZOLAM 2 MG/2 ML VIAL ONE (11:46)
[2023-06-18] MEDS ORDERED: PROPOFOL 500 MG/50 ML 500 MG/50 ML VIAL ONE (11:47)
[2023-06-18] MEDS ORDERED: PROPOFOL 200 MG/20 ML VIAL IVP ONE (11:47)
--- NOTE | 2023-06-18 12:05 | HISTORY & PHYSICAL EXAMINATION ---
Chief Complaint - Chief Complaint Chief Complaint: here for colonoscopy History of Present Illness - History Obtained From Records Reviewed: yes History obtained from: pt Exam Limitations: none - History of Present Illness HPI Comment/Other: mother had precancerous polyps. exact path unknown. Violet has history of irregular bowel habits and normal colonoscopy in 2019. 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 : reports: None HEENT: reports: None Psych: reports: Depression, Anxiety Musculoskeletal: reports: None Derm: reports: None MRSA Hx?: No - POLST Patient has POLST: No Meds/Allgy - Home Medications Home Medications: Ambulatory Orders Medication Instructions Recorded Confirmed Norgestimate-Ethinyl Estradiol 1 each PO 04/06/17 [Norg-Ethin Estra 0.25-0.035 mg] Trazodone HCl 50 mg PO QPM 06/30/18 06/30/18 Semaglutide [Ozempic] 0.25 mg SQ OAW 06/17/23 06/17/23 - Allergies Allergies/Adverse Reactions: Allergies Allergy/AdvReac Type Severity Reaction Status Date / Time No Known Drug Allergies Allergy Verified 06/02/23 13:29 Review of Systems - Other Findings Other Findings: 10 pt ros as above otherwise unremarkable Exam - Vital Signs Vital Signs: Vital Signs x48h Temp Pulse Resp BP Pulse Ox 06/18/23 10:20 36.8 C 104 H 18 138/81 H 99 - Physical Exam General Appearance: positive: No acute distress, Alert Eyes Bilateral: positive: PERRL, EOMI ENT: positive: No signs of dehydration Neck: positive: No JVD, Trachea midline Respiratory: positive: No respiratory distress Cardiovascular: positive: Regular rate & rhythm Abdomen: positive: No distention Neurologic/Psychiatric: positive: Oriented x3 Conclusion/Plan - Problem List (1) Colon cancer screening Conclusion/Plan: plan colonoscopy. parq held and consent obtained
[2023-06-18 12:54] VITALS: BP 108/75; O2SAT 95
--- NOTE | 2023-06-18 13:04 | ANESTHESIA POST OP EVALUATION ---
Anesthesia Post Eval - Post Anesthesia Eval Vitals: Last Vital Signs Temp 36.2 C L 06/18/23 12:34 Pulse 98 06/18/23 12:50 Resp 16 06/18/23 12:50 BP 108/75 06/18/23 12:50 Pulse Ox 95 06/18/23 12:50 O2 Flow Rate CV Function Including HR & BP: Stable Pain Control: Satisfactory Nausea & Vomiting: Negative Mental Status: Baseline Respiratory Status: Airway Patent Hydration Status: Satisfactory Anesthesia Complications: None
== END 2023-06-18 10:38 | disposition home or self-care (01) ==
LOC: SDS 10:37
PROVIDERS: ATTEND Surgery
PROC: 0DBF8ZX Excision of Right Large Intestine, Via Natural or Artificial Opening Endoscopic, Diagnostic (ICD-10-PCS; 2023-06-18)
PROC: 0DBG8ZX Excision of Left Large Intestine, Via Natural or Artificial Opening Endoscopic, Diagnostic (ICD-10-PCS; principal; 2023-06-18 12:30)
DX: Z12.11 Encounter for screening for malignant neoplasm of colon (principal); K57.30 Diverticulosis of large intestine without perforation or abscess without bleeding; E66.9 Obesity, unspecified; Z68.34 Body mass index [BMI] 34.0-34.9, adult; Z80.0 Family history of malignant neoplasm of digestive organs
CPT/HCPCS: 45380; 81025; J7120